=== PATIENT | female | born 1960 | race Caucasian/White ===

== ENCOUNTER 2017-06-13 04:47 | Emergency (ER) | payer MEDICARE, OTHER ==
[~2017-06-13] VITALS: Ht 170.2 cm; Wt 60.8 kg
[~2017-06-13 04:47] MED LIST: ANUSOL-HC25 MG RECTAL; APAP500; ATIVAN0.5 MG PO; AZITHROMYCIN500 MG PO; BACLOFEN20 MG PO; BENGAY113 GM TP; BUSPIRONE HCL10 MG PO; CLONAZEPAM 1 MG1 M1 PO; CLONAZEPAM PO; COLACE100 MG PO; COMPAZINE10 M1 PO; COMPAZINE10 MG PO; DURAGESIC1 EAC2 TD; FROVA2.5 MG PO; HYDROCODON-ACE1 EAC4 PO; HYDROCODON-ACE1 EAC5 PO; KLOR-CON PO; LEVAQUIN 500 M500 M7 PO; LYRICA 75 MG CA75 MG PO; MAXALT MLT ODT10 M1 PO; METAMUCIL PAC1 UDPKT PO; MIRALAX255 GM; MIRALAX255 GM PO; NEURONTIN 300300 M1 PO; NORFLEX100 MG PO; NUVIGIL PO; NUVIGIL250 MG PO; ONDANSETRON HCL4 M2 PO; POTASSIUM20 PO; PREDNISONE 10 M10 MG PO; PREDNISONE 20 M20 M1 PO; PRILOSEC 20 MG20 MG PO; PROAIR HFA8.5 GM PO; PROVIGIL 200 M200 M1 PO; PROZAC 20 MG20 M1 PO; PROZAC20 MG PO; SIMVASTATIN40 MG PO; SYNTHROID75 MCG PO; THERMACARE HEA1 EACH TP; TRIAMTERENE-HC1 EAC1 PO; VENTOLIN INH; VENTOLIN17 GM INH; VISTARIL 25 MG25 M1 PO
[2017-06-13 04:56] VITALS: BP 160/66
== END 2017-06-13 05:24 | disposition home or self-care (01) ==
LOC: M.ERS 04:47
DX: Z71.1 Person with feared health complaint in whom no diagnosis is made (principal); I10 Essential (primary) hypertension; K59.09 Other constipation; K64.9 Unspecified hemorrhoids; F17.210 Nicotine dependence, cigarettes, uncomplicated; Z90.49 Acquired absence of other specified parts of digestive tract; Z86.14 Personal history of Methicillin resistant Staphylococcus aureus infection; Z88.1 Allergy status to other antibiotic agents; Z90.710 Acquired absence of both cervix and uterus; Z88.5 Allergy status to narcotic agent; Z88.8 Allergy status to other drugs, medicaments and biological substances

== ENCOUNTER → 2018-06-19 | Outpatient (CLI) | payer MEDICARE, OTHER | LOC: M.RAD 05-25 14:31 → M.ULTRA 06-06 10:20 → M.RAD 06-06 10:20 → M.ULTRA 06-18 10:20 → M.RAD 06-18 13:00 | DX: N64.4 Mastodynia (principal); Z88.8 Allergy status to other drugs, medicaments and biological substances; Z88.5 Allergy status to narcotic agent; Z88.1 Allergy status to other antibiotic agents; Z80.8 Family history of malignant neoplasm of other organs or systems; Z80.0 Family history of malignant neoplasm of digestive organs ==

== ENCOUNTER → 2018-06-19 | Outpatient (CLI) | payer OTHER | LOC: M.CT 06-06 11:30 | DX: Z13.6 Encounter for screening for cardiovascular disorders (principal) ==

== ENCOUNTER 2019-05-02 11:48 | Emergency (ER) | payer MEDICARE, OTHER ==
[~2019-05-02] VITALS: Ht 170.2 cm; Wt 66.8 kg
[2019-05-02 12:34] LABS: ABSOLUTE BASOPHILS 0.1 thou/uL (0.0-0.2); ABSOLUTE EOSINOPHILS 0.3 thou/uL (0.0-0.7); ABSOLUTE MONOCYTES 0.4 thou/uL (0.0-1.2); ABSOLUTE NEUTROPHILS 5.2 thou/uL (1.6-8.1); BASOPHILS 1.2 %; EOSINOPHILS 3.7 %; HEMATOCRIT 41.3 % (37.0-47.0); HEMOGLOBIN 13.9 gm/dL (12.0-15.0); LYMPHOCYTES 25.2 %; MCH 27.8 pg (26.0-34.0); MCHC 33.6 g/dL (28.0-37.0); MCV 82.9 fL (80.0-100.0); MONOCYTES 5.5 %; MPV 8.7 fl. (7.2-11.1); NUCLEATED RBCS 0 /100WBC; PLATELET COUNT* 328 thou/uL (150-400); POLYS 64.4 %; RBC 4.98 mil/uL (4.20-5.00); RDW-CV 14.2 % (10.5-14.5)
[2019-05-02 12:47] LABS: CALCIUM 9.1 mg/dL (8.5-10.1); CREATININE 1.1 mg/dL (0.6-1.3); POTASSIUM 3.8 mmol/L (3.5-5.1)
[2019-05-02 12:52] LABS: ALBUMIN 4.5 g/dL (3.4-5.0); TOTAL BILIRUBIN 0.3 mg/dL (<0.1-1.0); TOTAL PROTEIN 8.3 g/dL (6.4-8.2)
[2019-05-02 12:54] LABS: SALICYLATE 3.5 mg/dL (2.8-20.0)
[2019-05-02 12:55] LABS: ACETAMINOPHEN < 2 ug/mL (10-30); ALCOHOL < 10 mg/dL (<10)
[2019-05-02 13:03] LABS: URINE BILIRUBIN NEGATIVE (Negative); URINE BLOOD NEGATIVE (Negative); URINE CLARITY CLEAR; URINE COLOR YELLOW; URINE GLUCOSE-RANDOM NEGATIVE (Negative); URINE KETONES NEGATIVE (Negative); URINE LEUKOCYTES-REFLEX NEGATIVE (Negative); URINE NITRITE-REFLEX NEGATIVE (Negative); URINE PROTEIN NEGATIVE (Negative); URINE SPECIFIC GRAVITY 1.025 (1.005-1.030); URINE UROBILINOGEN 0.2 E.U./dl (0.2-1.0)
[2019-05-02 13:10] LABS: AMP/METHAMP Negative (Negative); BARBITURATES Negative (Negative); BENZODIAZEPINES Negative (Negative); COCAINE Negative (Negative); METHADONE Negative (Negative); OPIATES Negative (Negative); PCP Negative (Negative); THC Negative (Negative)
[2019-05-02] MEDS ORDERED: CLONAZEPAM 0.50.5 M1 PO (13:20)
[2019-05-02] MEDS ORDERED: HYDROXYZINE PAM25 M1 PO ×2 (13:20→13:44)
[2019-05-02] MEDS ORDERED: ANUSOL-HC30 GM TOP (13:20)
[2019-05-02 14:01] VITALS: BP 139/85
== END 2019-05-02 14:11 | disposition home or self-care (01) ==
LOC: M.ERS 11:48
PROVIDERS: Emergency Medicine
DX: K59.00 Constipation, unspecified (principal); F19.980 Other psychoactive substance use, unspecified with psychoactive substance-induced anxiety disorder; I10 Essential (primary) hypertension; K58.9 Irritable bowel syndrome, unspecified; F17.210 Nicotine dependence, cigarettes, uncomplicated; Z86.14 Personal history of Methicillin resistant Staphylococcus aureus infection; Z90.710 Acquired absence of both cervix and uterus; Z90.49 Acquired absence of other specified parts of digestive tract; Z88.1 Allergy status to other antibiotic agents; Z88.6 Allergy status to analgesic agent; Z88.8 Allergy status to other drugs, medicaments and biological substances